=== PATIENT | female | born 1960 | race Caucasian/White ===

== ENCOUNTER → 2016-10-09 | Outpatient (CLI) | payer BC ==
[~2016-10-09] MED LIST: AGM875T PO; ASPI-586 PO; CETI10TA17 PO; LEVO500T80 PO; LEVO5TAB12 PO; LSNP20T PO; LVT.1T PO; METF-380 PO; MONT10TA24 PO; OMEG10005 PO; PHEN37.555 PO
--- NOTE | 2016-10-09 19:21 | Diagnostic Imaging Report ---
Bilateral screening mammogram. The current study was also evaluated with a Computer Aided Detection (CAD) system. INDICATION: Screening. No current complaints stated on the questionnaire. COMPARISON: 10/10/15. FINDINGS: The breasts are composed of scattered fibroglandular densities. There is an intramammary lymph node seen in the upper outer aspect of the right breast. Scattered benign-appearing calcifications are seen. Allowing for technique and positional differences, no suspicious change is seen. IMPRESSION: No significant change. ACR BI-RADS Category 2: Benign findings. Result letter will be mailed to the patient. Note: At least 10% of breast cancer is not imaged by mammography. Dictated by: Dictated on workstation # [id number]
== END ==
LOC: RAD 06:47
PROVIDERS: ATTEND Internal Medicine
DX: Z12.31 Encounter for screening mammogram for malignant neoplasm of breast (principal)

== ENCOUNTER 2016-12-19 14:54 | Emergency (ER) | payer BC ==
[~2016-12-19] VITALS: Ht 162.6 cm; Wt 73.9 kg
[~2016-12-19 14:54] MED LIST changes: -ASPI-586 PO; -LEVO500T80 PO; -LEVO5TAB12 PO; -MONT10TA24 PO; -OMEG10005 PO
--- OUTSIDE RECORDS SUMMARY | 2016-12-19 15:00 | XMS REPORT | Continuity of Care Document ---
Author Author [facility] Organization [facility] Address Unknown Phone Unavailable Allergies Active Description Code Type Severity Reaction Onset Reported/Identified Relationship to Patient Clinical Status Yes cephalexin [id number] Drug Allergy Unknown N/A 09/17/2016 Medications Problems Date Dx Coded Attending Type Code Diagnosis Diagnosed By 02/08/2012 Ot 883.0 OPEN WOUND OF FINGER 02/08/2012 Ot E000.8 OTHER EXTERNAL CAUSE STATUS 02/08/2012 Ot E849.0 ACCIDENT IN HOME 02/08/2012 Ot E920.4 ACCID-OTHER HAND TOOLS 02/08/2012 Ot V06.1 [id number], COMBINED [ 02/16/2012 Ot V58.32 ENCOUNTER FOR REMOVAL OF SUTURES 10/11/2014 Ot V76.12 10/11/2014 Ot 785.6 10/11/2014 Ot 722.4 10/11/2014 Ot 723.4 10/11/2014 Ot V76.12 10/11/2014 FOSTER ALVARENGA EX ASSISTANT/PROGRAM DIRECTOR Ot V76.12 10/30/2014 Ot V76.12 10/30/2014 Ot 785.6 10/30/2014 Ot 722.4 10/30/2014 Ot 723.4 10/30/2014 Ot V76.12 10/30/2014 FOSTER ALVARENGA EX ASSISTANT/PROGRAM DIRECTOR Ot V76.12 10/30/2014 FOSTER ALVARENGA EX ASSISTANT/PROGRAM DIRECTOR Ot V76.12 11/02/2014 FOSTER ALVARENGA EX ASSISTANT/PROGRAM DIRECTOR Ot V76.12 11/15/2014 FOSTER ALVARENGA EX ASSISTANT/PROGRAM DIRECTOR Ot 793.80 05/03/2015 FOSTER ALVARENGA EX ASSISTANT/PROGRAM DIRECTOR Ot 793.80 09/26/2015 FOSTER ALVARENGA EX ASSISTANT/PROGRAM DIRECTOR Ot R05 09/26/2015 FOSTER ALVARENGA EX ASSISTANT/PROGRAM DIRECTOR Ot R50.9 10/24/2015 FOSTER ALVARENGA EX ASSISTANT/PROGRAM DIRECTOR Ot Z12.31 09/17/2016 Ot 722.4 CERVICAL DISC DEGEN 09/17/2016 Ot 723.4 BRACHIAL NEURITIS NOS 09/17/2016 Ot V76.12 OTH SCREEN MAMMO-MALIGN NEOPLASM OF ZHANG 09/17/2016 FOSTER ALVARENGAP Ot V76.12 OTH SCREEN MAMMO-MALIGN NEOPLASM OF ZHANG 09/17/2016 FOSTER ALVARENGAP Ot V76.12 OTH SCREEN MAMMO-MALIGN NEOPLASM OF ZHANG 09/17/2016 FOSTER ALVARENGA EX ASSISTANT/PROGRAM DIRECTOR Ot 793.80 UNSPEC ABNORMAL MAMMOGRAM 09/17/2016 FOSTER ALVARENGA EX ASSISTANT/PROGRAM DIRECTOR Ot 793.80 UNSPEC ABNORMAL MAMMOGRAM 09/17/2016 FOSTER ALVARENGAP Ot R05 COUGH 09/17/2016 FOSTER ALVARENGA EX ASSISTANT/PROGRAM DIRECTOR Ot R50.9 FEVER, UNSPECIFIED 09/17/2016 FOSTER ALVARENGAP Ot Z12.31 ENCNTR SCREEN MAMMOGRAM FOR MALIGNANT NE 09/18/2016 FIFI ALVARENGA DO Ot A08.39 OTHER VIRAL ENTERITIS 09/18/2016 FIFI ALVARENGA DO Ot E86.0 DEHYDRATION 09/19/2016 FIFI ALVARENGA DO Ot A08.39 OTHER VIRAL ENTERITIS 09/19/2016 FIFI ALVARENGA DO Ot E86.0 DEHYDRATION 10/01/2016 FIFI ALVARENGA DO Ot A08.39 OTHER VIRAL ENTERITIS 10/01/2016 FIFI ALVARENGA DO Ot E86.0 DEHYDRATION 10/09/2016 FIFI ALVARENGA DO Ot Z12.31 ENCNTR SCREEN MAMMOGRAM FOR MALIGNANT NE 10/10/2016 FIFI ALVARENGA DO Ot Z12.31 ENCNTR SCREEN MAMMOGRAM FOR MALIGNANT NE 10/24/2016 FIFI ALVARENGA DO Ot Z12.31 ENCNTR SCREEN MAMMOGRAM FOR MALIGNANT NE Procedures Results Encounters ACCT No. Visit Date/Time Discharge Status Pt. Type Provider Facility Loc./Unit Complaint [id number] 04/18/2015 07:42:00 2014 23:59:59 CLS Outpatient FOSTER ALVARENGAP [facility] RAD FOLLOW UP [id number] 10/30/2014 12:10:00 2014 23:59:59 CLS Outpatient FOSTER ALVARENGA EX ASSISTANT/PROGRAM DIRECTOR [facility] RAD ABNORMAL MAMMO [id number] 10/11/2014 16:01:00 2014 23:59:59 CLS Outpatient FOSTER ALVARENGA L EX ASSISTANT/PROGRAM DIRECTOR [facility] RAD SCREENING [id number] 10/10/2013 14:29:00 2013 23:59:59 CLS Outpatient FOSTER ALVARENGA EX ASSISTANT/PROGRAM DIRECTOR [facility] RAD SCREENING [id number] 12/19/2016 14:56:00 ACT Emergency BUDDY OLIVAS, JO Crenshaw [facility] ER DEHYDRATED [id number] 10/09/2016 06:47:00 ACT Outpatient FIFI ALVARENGA DO [facility] RAD ROUTINE [id number] 09/17/2016 12:22:00 ACT Outpatient FIFI ALVARENGA DO [facility] A08.39,E86.0 [id number] 07/25/2016 15:10:00 ACT Outpatient COLTHARP DOVIRIDIANA A [facility] QUICK LT WRIST PAIN [id number] 10/10/2015 07:32:00 ACT Outpatient FOSTER ALVARENGA EX ASSISTANT/PROGRAM DIRECTOR [facility] RAD SCREENING [id number] 09/10/2015 12:25:00 ACT Outpatient FOSTER ALVARENGA EX ASSISTANT/PROGRAM DIRECTOR [facility] RAD COUGH,FEVER [id number] 10/06/2012 11:09:00 Document Registration [id number] 02/16/2012 17:17:00 Document Registration [id number] 02/08/2012 18:46:00 Document Registration [id number] 04/22/2011 08:04:00 Document Registration [id number] 04/15/2011 08:55:00 Document Registration [id number] 06/07/2010 09:36:00 Document Registration [id number] 05/06/2010 12:23:00 Document Registration
[2016-12-19] MEDS ORDERED: LEVO500T80 PO (15:28)
[2016-12-19] MEDS ORDERED: LEVO5TAB12 PO (15:28)
[2016-12-19] MEDS ORDERED: MONT10TA24 PO (15:28)
[2016-12-19] MEDS ORDERED: OMEG10005 PO (15:28)
[2016-12-19] MEDS ORDERED: ASPI-586 PO (15:28)
[2016-12-19 15:45] LABS: BASOPHILS % (AUTO) 0 % (0-10); EOSINOPHILS # (AUTO) 0.2 10^3/uL (0.0-0.3); EOSINOPHILS % (AUTO) 2 % (0-10); LYMPHOCYTES # (AUTO) 2.1 X 10^3 (1.0-4.0); LYMPHOCYTES % (AUTO) 29 % (12-44); MEAN CORPUSCULAR HEMOGLOBIN 29 PG (25-34); MEAN CORPUSCULAR HGB CONC 34 G/DL (32-36); MEAN CORPUSCULAR VOLUME 86 FL (80-99); MEAN PLATELET VOLUME 11.6 FL (7.4-10.4); MONOCYTES # (AUTO) 0.7 X 10^3 (0.0-1.0); MONOCYTES % (AUTO) 9 % (0-12); NEUTROPHILS # (AUTO) 4.3 X 10^3 (1.8-7.8); NEUTROPHILS % (AUTO) 59 % (42-75); PLATELET COUNT 151 10^3/uL (130-400); RED CELL DISTRIBUTION WIDTH 13.6 % (10.0-14.5); WHITE BLOOD COUNT 7.3 10^3/uL (4.3-11.0)
[2016-12-19 15:59] LABS: ALANINE AMINOTRANSFERASE 37 U/L (0-55); ALBUMIN 4.2 G/DL (3.2-4.5); ANION GAP 12 MMOL/L (5-14); ASPARTATE AMINO TRANSFERASE 32 U/L (5-34); BILIRUBIN,TOTAL 0.7 MG/DL (0.1-1.0); BLOOD UREA NITROGEN 10 MG/DL (7-18); BUN/CREATININE RATIO 13; CALCIUM 9.9 MG/DL (8.5-10.1); CARBON DIOXIDE 22 MMOL/L (21-32); CHLORIDE 107 MMOL/L (98-107); CREATININE SERUM 0.78 MG/DL (0.60-1.30); GFR ESTIMATED > 60; GLUCOSE 176 MG/DL (70-105); SODIUM 141 MMOL/L (135-145); TOTAL PROTEIN 6.6 G/DL (6.4-8.2)
--- NOTE | 2016-12-19 16:02 | Diagnostic Imaging Report ---
INDICATION: Paresthesia with cough. EXAMINATION: Portable upright view of the chest is obtained with comparison made to study of 09/10/2015. FINDINGS: Heart size and pulmonary vascularity are within normal limits, and the lungs are clear, bilaterally. IMPRESSION: Unremarkable chest. Dictated by: Dictated on workstation # [id number]
[2016-12-19 16:25] LABS: BILIRUBIN,URINE NEGATIVE (NEGATIVE); KETONES,URINE NEGATIVE (NEGATIVE); LEUKOCYTE ESTERASE ,URINE NEGATIVE (NEGATIVE); NITRITE,URINE NEGATIVE (NEGATIVE); PH,URINE 8 (5-9); PROTEIN,URINE NEGATIVE (NEGATIVE); UROBILINOGEN,URINE NORMAL (NORMAL)
--- NOTE | 2016-12-19 16:57 | ED General ---
General Chief Complaint: General Problems/Pain Stated Complaint: DEHYDRATED Nursing Triage Note: pt reports had pneumonia 3 weeks ago. reports she was feeling better today until 1330 when she became weak, lethargic, and nauseated. pt also reports episodes of diahrrea. Nursing Sepsis Screen: No Definite Risk Source of Information: Patient History of Present Illness Time Seen by Provider: 16:52 Initial Comments The patient is a 56-year-old white female known to me for several years. She reports that she has had upper respiratory symptoms for at least a month. She had been seen twice at the [facility] during that period of time, the first by Jayde and she was given an antibiotic. She also had albuterol by nebulizer and a course of steroids. It is noted that she is diabetic as well. She felt somewhat better only to relapse and most recently saw Dr. Peacock. She was given Levaquin and has completed 9 days of a 10 day course. This morning she thought she was feeling better and more energetic. 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 She felt that the urge to vomit at about noon while at work and felt very shaky as she walked down the hallway to the bathroom. She reports she had a large liquid stool. She continued to feel lightheaded and generally awful. Her daughter was called and ultimately she was brought here. She described a generalized feeling of heat and specifically a burning sensation in the palms of both hands. This is now resolved. Timing/Duration: 4-6 Hours Associated Systoms: Cough Loss of Appetite Nausea/Vomiting Shortness of Air Syncope Allergies and Home Medications Allergies Coded Allergies: cephalexin (Verified Allergy, Unknown, 09/17/16) clarithromycin (Verified Allergy, Unknown, RASH, 12/19/16) phentermine (Verified Adverse Reaction, Unknown, 12/19/16) ankle cramps Home Medications Aspirin 81 Mg Tablet.dr 81 MG PO DAILY (Reported) Levocetirizine Dihydrochloride 5 Mg Tablet 5 MG PO (Reported) Levofloxacin 500 Mg Tablet 500 MG PO DAILY (Reported) Levothyroxine Sodium 100 Mcg Tablet 1 EACH PO DAILY (Reported) Lisinopril 20 Mg Tab 20 MG PO DAILY (Reported) Montelukast Sodium 10 Mg Tablet 10 MG PO DAILY (Reported) [place]-3 Fatty Acids 1,000 Mg Capsule 2,000 MG PO DAILY (Reported) Constitutional: see HPI EENTM: no symptoms reported Respiratory: cough dyspnea on exertion short of breath wheezing Cardiovascular: no symptoms reported Gastrointestinal: nausea vomiting Genitourinary: no symptoms reported Musculoskeletal: muscle weakness other (tremor after albuterol) Skin: no symptoms reported Psychiatric/Neurological: No Symptoms Reported Hematologic/Lymphatic: No Symptoms Reported Immunological/Allergic: no symptoms reported Past Exbfkxc-Akmzom-Lrnunj Hx Patient Social History Alcohol Use: Occasionally Uses Recreational Drug Use: No Smoking Status: Never a Smoker Recent Foreign Travel: No Contact w/Someone Who Travel: No Recent Infectious Disease Expo: No Recent Hopitalizations: No Immunizations Up To Date Date of Influenza Vaccine: Jun 10, 2016 Seasonal Allergies Seasonal Allergies: Yes Surgeries HX Surgeries: Yes (endometriosis, feet) Surgeries: Gallbladder, Hysterectomy, Orthopedic Respiratory Hx Respiratory Disorders: No Cardiovascular Hx Cardiac Disorders: Yes Cardiac Disorders: Hypertension Neurological Hx Neurological Disorders: No Reproductive System Hx Reproductive Disorders: Yes Female Reproductive Disorders: Endometriosis [employer] History: Hysterectomy Genitourinary Hx Genitourinary Disorders: No Gastrointestinal Hx Gastrointestinal Disorders: No Musculoskeletal Hx Musculoskeletal Disorders: Yes (bursitis) Musculoskeletal Disorders: Fibromyalgia Endocrine Hx Endocrine Disorders: Yes Endocrine Disorders: Diabetes, Non-Insulin dep Cancer Hx Cancer: No Psychosocial Hx Psychiatric Problems: No Integumentary HX Skin/Integumentary Disorder: No Blood Transfusions Hx Blood Disorders: No Physical Exam Vital Signs Vital Sign - Last 12Hours 12/19/16 15:15 Temp 98.7 Pulse 75 Resp 18 B/P 171/90 Pulse Ox 95 Capillary Refill : Less Than 3 Seconds General Appearance: Mild Distress Eyes: Bilateral Eye Normal Inspection HEENT: Normal ENT Inspection Neck: Normal Inspection Respiratory: Chest Non Tender Lungs Clear No Accessory Muscle Use No Respiratory Distress Decreased Breath Sounds (distant) Cardiovascular: Regular Rate, Rhythm No Edema No Gallop No JVD No Murmur Normal Peripheral Pulses Gastrointestinal: Abnormal Bowel Sounds (somewhat hypoactive) Back: Normal Inspection Extremity: Normal Capillary Refill Normal Inspection Normal Range of Motion Non Tender No Calf Tenderness No Pedal Edema Neurologic/Psychiatric: Alert Oriented x3 No Motor/Sensory Deficits Normal Mood/Affect Skin: Normal Color Warm/Dry Lymphatic: No Adenopathy Focused Exam Lactic Acid Level Laboratory Tests Test 12/19/16 15:13 Alanine Aminotransferase (ALT/SGPT) 37U/L (0-55) Albumin 4.2G/DL (3.2-4.5) Alkaline Phosphatase 91U/L (40-136) Anion Gap 12MMOL/L (5-14) Aspartate Amino Transf (AST/SGOT) 32U/L (5-34) BUN/Creatinine Ratio 13 Blood Urea Nitrogen 10MG/DL (7-18) Calcium Level 9.9MG/DL (8.5-10.1) Carbon Dioxide Level 22MMOL/L (21-32) Chloride Level 107MMOL/L (98-107) Creatinine 0.78MG/DL (0.60-1.30) Estimat Glomerular Filtration Rate > 60 Glucose Level 176MG/DL (70-105) H Potassium Level 4.0MMOL/L (3.6-5.0) Sodium Level 141MMOL/L (135-145) Total Bilirubin 0.7MG/DL (0.1-1.0) Total Protein 6.6G/DL (6.4-8.2) Progress/Results/Core Measures Results/Orders Lab Results Laboratory Tests Test 12/19/16 15:13 12/19/16 16:19 Range/Units Alanine Aminotransferase (ALT/SGPT) 37 0-55 U/L Albumin 4.2 3.2-4.5 G/DL Alkaline Phosphatase 91 40-136 U/L Anion Gap 12 5-14 MMOL/L Aspartate Amino Transf (AST/SGOT) 32 5-34 U/L BUN/Creatinine Ratio 13 Basophils # (Auto) 0.0 0.0-0.1 10^3/uL Basophils (%) (Auto) 0 0-10 % Blood Urea Nitrogen 10 7-18 MG/DL Calcium Level 9.9 8.5-10.1 MG/DL Carbon Dioxide Level 22 21-32 MMOL/L Chloride Level 107 98-107 MMOL/L Creatinine 0.78 0.60-1.30 MG/DL Eosinophils # (Auto) 0.2 0.0-0.3 10^3/uL Eosinophils (%) (Auto) 2 0-10 % Estimat Glomerular Filtration Rate > 60 Glucose Level 176 H 70-105 MG/DL Hematocrit 40 35-52 % Hemoglobin 13.8 11.5-16.0 G/DL Lymphocytes # (Auto) 2.1 1.0-4.0 X 10^3 Lymphocytes (%) (Auto) 29 12-44 % Mean Corpuscular Hemoglobin 29 25-34 PG Mean Corpuscular Hemoglobin Concent 34 32-36 G/DL Mean Corpuscular Volume 86 80-99 FL Mean Platelet Volume 11.6 H 7.4-10.4 FL Monocytes # (Auto) 0.7 0.0-1.0 X 10^3 Monocytes (%) (Auto) 9 0-12 % Neutrophils # (Auto) 4.3 1.8-7.8 X 10^3 Neutrophils (%) (Auto) 59 42-75 % Platelet Count 151 130-400 10^3/uL Potassium Level 4.0 3.6-5.0 MMOL/L Red Blood Count 4.70 4.35-5.85 10^6/uL Red Cell Distribution Width 13.6 10.0-14.5 % Sodium Level 141 135-145 MMOL/L Total Bilirubin 0.7 0.1-1.0 MG/DL Total Protein 6.6 6.4-8.2 G/DL White Blood Count 7.3 4.3-11.0 10^3/uL Urine Bacteria NEGATIVE /HPF Urine Bilirubin NEGATIVE NEGATIVE Urine Casts NONE /LPF Urine Clarity CLEAR Urine Color YELLOW Urine Crystals NONE /LPF Urine Culture Indicated NO Urine Glucose (UA) NEGATIVE NEGATIVE Urine Ketones NEGATIVE NEGATIVE Urine Leukocyte Esterase NEGATIVE NEGATIVE Urine Mucus NEGATIVE /LPF Urine Nitrite NEGATIVE NEGATIVE Urine Protein NEGATIVE NEGATIVE Urine RBC NONE /HPF Urine RBC (Auto) NEGATIVE NEGATIVE Urine Specific [place] 1.010 L 1.016-1.022 Urine Squamous Epithelial Cells 5-10 /HPF Urine Urobilinogen NORMAL NORMAL MG/DL Urine WBC NONE /HPF Urine pH 8 5-9 My Orders Orders-JO GOODWIN MD Cbc With Automated Diff (12/19/16 15:38) Comprehensive Metabolic Panel (12/19/16 15:38) Ua Culture If Indicated (12/19/16 15:38) Chest 1 View, Ap/Pa Only (12/19/16 15:38) Vital Signs/I&O Vital Sign - Last 12Hours 12/19/16 15:15 Temp 98.7 Pulse 75 Resp 18 B/P 171/90 Pulse Ox 95 Blood Pressure Mean: 117 Departure Impression Impression: Primary Impression: viral syndrome Additional Impression: cough/bronchospasm Disposition: 01 HOME, SELF-CARE Condition: Stable/Unchanged Departure-Patient Inst. Decision time for Depature: 17:00 Referrals: FIFI ALVARENGA DO (PCP/Family) Primary Care Physician Add. Discharge Instructions: All discharge instructions reviewed with patient and/or family. Voiced understanding. Stop Levaquin. Rest for the remainder of the day. Target increase fluid intake and more specifically 7-Up and Gatorade. If no more GI symptoms by morning you may advance diet to include cream of wheat or oatmeal and dry toast and continued to progress as able with out causing diarrhea or vomiting. Consider seeing your provider again early next week. JO GOODWIN MD Dec 19, 2016 16:57
[2016-12-19 17:20] VITALS: BP 151/79
== END 2016-12-19 17:20 | disposition home or self-care (01) ==
LOC: EDUNIT# 14:54 → ER 14:56
DX: B34.9 Viral infection, unspecified (principal); R05 Cough; I10 Essential (primary) hypertension; E11.9 Type 2 diabetes mellitus without complications; Z79.899 Other long term (current) drug therapy; Z79.82 Long term (current) use of aspirin
CPT/HCPCS: 36415; 71010; 80053; 81000; 85025

== ENCOUNTER 2017-08-06 12:58 | Outpatient (CLI) | payer BC ==
[~2017-08-06] VITALS: Ht 154.9 cm; Wt 78.9 kg
[~2017-08-06 12:58] MED LIST changes: +ASPI-586 PO; +LEVO500T80 PO; +LEVO5TAB12 PO; +MONT10TA24 PO; +OMEG10005 PO
[2017-08-06] MEDS ORDERED: DEXAMETHASONE 10 MG/ML (DECADRON) 1 ML VIAL ONE (13:04)
[2017-08-06 13:30] VITALS: BP 144/85
[2017-08-06 13:52] VITALS: BP 139/88
--- NOTE | 2017-08-10 18:13 | OPERATIVE REPORT ---
DATE OF SERVICE: 08/06/2017 DIAGNOSIS: Cervical radiculopathy. PROCEDURE: Fluoroscopic guided interlaminar epidural steroid injection. PROCEDURE IN DETAIL: After obtaining informed consent from the patient, the patient's chart was reviewed. The patient was then brought to the procedure room and placed in the prone position. A timeout was performed. The back was prepped with antiseptic solution and under fluoro guidance, the patient's lumbar spine was identified at the level of C7-T1. The C7-T1 vertebra was identified with fluoro guidance and approximately 2 mL of 1.5% lidocaine solution was used to anesthetize the skin directly down to the pedicle of the C7-T1 and under fluoroscopic guidance, the tract was anesthetized up to the interlaminar space and the ligamentum flavum. This needle was withdrawn. Then, a 20-gauge 3.5 inch Tuohy needle was then directed following the same tract that was anesthetized with the spinal needle. Using loss of resistance, the epidural space was identified and then the syringe was switched for contrast solution which was injected, approximately 1 mL. After secondary confirmation of epidural access, another syringe was placed and 80 mg of Depo-Medrol was injected. The Tuohy needle was then flushed out with approximately 2 mL of the normal saline used from the loss of resistance syringe. Band-Aids were applied to all the procedure sites. The patient tolerated the procedure well and was taken to the recovery room in stable condition. COMPLICATIONS: None. Job ID: [id number] DocumentID: [id number] Dictated Date: 08/10/2017 09:40:35 Bread Baker Date: 08/10/2017 18:12:23 Dictated By: SYED DEVI DO
== END 2017-08-06 13:53 ==
LOC: CARD 12:58
PROVIDERS: ATTEND Pain Medicine Interventional Pain Medicine
DX: M54.12 Radiculopathy, cervical region (principal); I10 Essential (primary) hypertension; E07.9 Disorder of thyroid, unspecified; Z79.82 Long term (current) use of aspirin; Z79.899 Other long term (current) drug therapy
CPT/HCPCS: 62321

== ENCOUNTER → 2017-09-07 | Outpatient (CLI) | payer BC ==
--- NOTE | 2017-09-07 08:40 | Diagnostic Imaging Report ---
PROCEDURE: CT sinuses without contrast TECHNIQUE: Multiple contiguous axial images were obtained through the sinuses without the use of intravenous contrast. Coronal and sagittal reformations were then performed. INDICATION: Chronic sinusitis. FINDINGS: There is opacification of the mid ethmoidal air cells on both sides with good aeration of the rest of the ethmoidal air cells anteriorly and posteriorly. The sphenoidal sinuses appear clear. The maxillary sinuses are clear with patent ostiomeatal complex. The frontal sinuses are patent. The mastoid air cells and middle ear cavities are patent. The orbits and the soft tissues around the face appear grossly unremarkable. No significant nasal septal deviation. No nasal mass or significant mucosal thickening. IMPRESSION: Minimal opacification in the middle ethmoid air cells bilaterally. Dictated by: Dictated on workstation # [id number]
== END ==
LOC: RAD 07:45
PROVIDERS: ATTEND Otolaryngology Otolaryngology/Facial Plastic Surgery
DX: J32.9 Chronic sinusitis, unspecified (principal)
CPT/HCPCS: 70486

== ENCOUNTER 2017-09-30 09:00 | Outpatient (CLI) | payer BC | END 2017-09-30 09:39 | disposition home or self-care (01) | LOC: SLEEP 09:00 | PROVIDERS: ATTEND Nurse Practitioner Family | DX: G47.10 Hypersomnia, unspecified (principal); R06.83 Snoring; G47.61 Periodic limb movement disorder ==

== ENCOUNTER → 2017-10-15 | Outpatient (CLI) | payer BC ==
--- NOTE | 2017-10-15 17:10 | Diagnostic Imaging Report ---
INDICATION: Digital mammogram bilateral screening. This study was compared to the prior exams from 10/09/16 to 10/06/12. At this time, there are no current complaints. The current study was also evaluated with a Computer Aided Detection (CAD) system. FINDINGS: There are scattered fibroglandular densities in both breasts which could obscure a lesion. Overall, there does not appear to have been any significant change when compared to the prior exam. No primary or secondary sign of malignancy is noted. IMPRESSION: There is no radiographic evidence for malignancy. ACR BI-RADS Category 1: Negative. Result letter will be mailed to the patient. Note: At least 10% of breast cancer is not imaged by mammography. Dictated by: Dictated on workstation # [id number]
== END ==
LOC: RAD 10:53
PROVIDERS: ATTEND Internal Medicine
DX: Z12.31 Encounter for screening mammogram for malignant neoplasm of breast (principal)
CPT/HCPCS: 77067

== ENCOUNTER → 2018-11-09 | Outpatient (CLI) | payer BC ==
--- NOTE | 2018-11-09 13:21 | Diagnostic Imaging Report ---
INDICATION: Routine screening. Comparison is made with prior mammograms from 10/15/2017 and 10/09/2016. 2-D and 3-D bilateral screening mammography was performed with computer-aided Detection (CAD) system. FINDINGS: Scattered fibroglandular densities are identified bilaterally. The parenchymal pattern is stable. No mass or malignant-appearing microcalcifications are seen. The axillae are unremarkable. IMPRESSION: No mammographic features suspicious for malignancy are identified. ACR BI-RADS Category 1: Negative. Result letter will be mailed to the patient. Note: At least 10% of breast cancer is not imaged by mammography. Dictated by: Dictated on workstation # [id number]
== END ==
LOC: RAD 07:20
PROVIDERS: ATTEND Internal Medicine
DX: Z12.31 Encounter for screening mammogram for malignant neoplasm of breast (principal)
CPT/HCPCS: 77067

== ENCOUNTER → 2019-11-10 | Outpatient (CLI) | payer BC ==
--- NOTE | 2019-11-10 10:47 | Diagnostic Imaging Report ---
INDICATION: Routine screening. Comparison is made with prior mammogram 02/21/2019 and 10/15/2017. 2-D and 3-D bilateral screening mammography was performed with CAD. Scattered fibroglandular densities are identified bilaterally. A nodular density in the lower slightly outer right breast mid depth is noted and appears more prominent than prior studies. Additional views are recommended. Left breast is unremarkable. There are occasional benign calcifications present. Axillae are unremarkable. IMPRESSION: BI-RADS 0 Right breast nodular density. Additional views are recommended for further evaluation. ACR BI-RADS Category 0: Incomplete. (Needs additional imaging evaluation). Result letter will be mailed to the patient. Note: At least 10% of breast cancer is not imaged by mammography. Dictated by: Dictated on workstation # [id number]
== END ==
LOC: RAD 07:23
PROVIDERS: ATTEND Nurse Practitioner Family
DX: Z12.31 Encounter for screening mammogram for malignant neoplasm of breast (principal); N63.10 Unspecified lump in the right breast, unspecified quadrant; R92.1 Mammographic calcification found on diagnostic imaging of breast
CPT/HCPCS: 77067

== ENCOUNTER → 2019-12-01 | Outpatient (CLI) | payer BC ==
[~2019-12-01] MED LIST changes: -MONT10TA24 PO; +MONT10TA26 PO
--- NOTE | 2019-12-01 16:04 | Diagnostic Imaging Report ---
INDICATION: Right breast density. Patient presents for additional views. Correlation is made with recent screening study from 11/10/2019. Unilateral right 2-D and 3-D diagnostic mammography was performed including spot compression CC and ML views as well as conventional 90 degree lateral view. There is a persistent nodular density in the lower outer right breast approximately 6-7 cm from the nipple. This is fairly well-circumscribed and likely benign. Further evaluation with ultrasound is recommended. No suspicious microcalcifications are seen. IMPRESSION: BI-RADS 0. Circumscribed nodular density lower outer right breast 6 to 7 cm from the nipple. Further evaluation with ultrasound is recommended. ACR BI-RADS Category 0: Incomplete. (Needs additional imaging evaluation). Result letter will be mailed to the patient. Note: At least 10% of breast cancer is not imaged by mammography. Dictated by: Dictated on workstation # [id number]
--- NOTE | 2019-12-02 11:46 | Diagnostic Imaging Report ---
INDICATION: Right breast density. This study is performed for further evaluation. Correlation is made with diagnostic mammogram earlier the same day. FINDINGS: Sonographic interrogation of the lower-outer right breast was performed. There is a small cluster of cysts at the 7 o'clock location, 5 cm from the nipple measuring in aggregate 7 mm x 4 mm. This likely accounts for the mammographic density. No other sonographic abnormality is seen. IMPRESSION: Cluster of cysts at the 7 o'clock location of the right breast, 5 cm from the nipple correlating with the mammographic abnormality. The patient may return to routine annual screening mammography. ACR BI-RADS Category 2: Benign findings. Result letter will be mailed to the patient. Note: At least 10% of breast cancer is not imaged by mammography. Dictated by: Dictated on workstation # [id number]
== END ==
LOC: RAD 08:45
PROVIDERS: ATTEND Nurse Practitioner Family
DX: N60.01 Solitary cyst of right breast (principal)

== ENCOUNTER → 2020-03-30 | Outpatient (CLI) | payer BC ==
--- NOTE | 2020-03-30 07:56 | Diagnostic Imaging Report ---
Indication: Difficulty breathing PA and lateral chest Heart size and pulmonary vascularity are normal. Lungs are clear. There are no effusions or pneumothoraces. IMPRESSION: Negative chest Dictated by: Dictated on workstation # [id number]
== END ==
LOC: RAD 07:00
PROVIDERS: ATTEND Internal Medicine
DX: J45.909 Unspecified asthma, uncomplicated (principal); J01.01 Acute recurrent maxillary sinusitis
CPT/HCPCS: 71047

== ENCOUNTER → 2020-08-24 | Outpatient (CLI) | payer BC ==
[~2020-08-24] MED LIST changes: +ASPI-999 PO; +BUDE10.22 IH; +CHOL20002 PO; +GLIM1TAB4 PO; +HYDR25TA4 PO; +LEVO100T7 PO; +LISI40TA PO; +RT-ALBUINH IH; +TEMA15CA PO; +[UNRECOGNIZED DRUG - CODE] SL; +[UNRECOGNIZED DRUG - OTHER] PO
--- NOTE | 2020-08-24 09:04 | Diagnostic Imaging Report ---
PROCEDURE: CT sinuses without contrast TECHNIQUE: Multiple contiguous axial images were obtained through the sinuses without the use of intravenous contrast. Coronal and sagittal reformations were then performed. Auto Exposure Controls were utilized during the CT exam to meet ALARA standards for radiation dose reduction. INDICATION: Left-sided nasal pressure and chronic sinusitis. FINDINGS: The frontal sinus is clear. There is some mucosal thickening of the ethmoid air cells. Bilateral maxillary sinuses are clear. Sphenoid sinus is clear. Mastoids are well aerated. Ostiomeatal complexes are patent bilaterally. Nasal septum is midline. IMPRESSION: Minimal ethmoid sinus mucosal disease. The study is otherwise unremarkable. Dictated by: Dictated on workstation # [id number]
== END ==
LOC: RAD 08:15
PROVIDERS: ATTEND Nurse Practitioner
DX: J32.2 Chronic ethmoidal sinusitis (principal)
CPT/HCPCS: 70486

== ENCOUNTER 2020-08-28 05:34 | Outpatient (RCR) | payer BC ==
[~2020-08-28] VITALS: Ht 162.6 cm; Wt 86.7 kg
[~2020-08-28 05:34] MED LIST changes: -ASPI-999 PO; -BUDE10.22 IH; -CHOL20002 PO; -GLIM1TAB4 PO; -HYDR25TA4 PO; -LEVO100T7 PO; -LISI40TA PO; -RT-ALBUINH IH; -TEMA15CA PO; -[UNRECOGNIZED DRUG - CODE] SL; -[UNRECOGNIZED DRUG - OTHER] PO
[2020-08-28 09:15] VITALS: BP 114/76
[2020-08-28] MEDS ORDERED: ASPI-999 PO (10:16)
[2020-08-28] MEDS ORDERED: LEVO100T7 PO (10:16)
[2020-08-28] MEDS ORDERED: RT-ALBUINH IH (10:16)
[2020-08-28] MEDS ORDERED: [UNRECOGNIZED DRUG - CODE] SL (10:16)
[2020-08-28] MEDS ORDERED: LISI40TA PO (10:16)
[2020-08-28] MEDS ORDERED: [UNRECOGNIZED DRUG - OTHER] PO (10:16)
[2020-08-28] MEDS ORDERED: BUDE10.22 IH (10:16)
[2020-08-28] MEDS ORDERED: GLIM1TAB4 PO (10:16)
[2020-08-28] MEDS ORDERED: TEMA15CA PO (10:16)
[2020-08-28] MEDS ORDERED: CHOL20002 PO (10:16)
[2020-08-28] MEDS ORDERED: HYDR25TA4 PO (10:16)
== END 2020-08-28 10:34 | disposition home or self-care (01) ==
LOC: PREOP 05:34
PROVIDERS: ATTEND Otolaryngology Otolaryngology/Facial Plastic Surgery
DX: Z01.812 Encounter for preprocedural laboratory examination (principal); J32.9 Chronic sinusitis, unspecified; J34.3 Hypertrophy of nasal turbinates; Z20.828 Contact with and (suspected) exposure to other viral communicable diseases
CPT/HCPCS: 87081; 93005; U0002; 87635

== ENCOUNTER 2020-08-31 08:18 | Day surgery (SDC) | payer BC ==
[~2020-08-31] VITALS: Ht 162.6 cm; Wt 86.7 kg
[2020-08-31] VITALS (11 sets, daily range): BP systolic 129–166; BP diastolic 74–90
[~2020-08-31 08:18] MED LIST changes: +ASPI-999 PO; +BUDE10.22 IH; +CHOL20002 PO; +GLIM1TAB4 PO; +HYDR25TA4 PO; +LEVO100T7 PO; +LISI40TA PO; -MONT10TA26 PO; +MONT10TA97 PO; +RT-ALBUINH IH; +TEMA15CA PO; +[UNRECOGNIZED DRUG - CODE] SL; +[UNRECOGNIZED DRUG - OTHER] PO
--- NOTE | 2020-08-31 08:24 | Progress Note-Pre Operative ---
Pre-Operative Progress Note H&P Reviewed The H&P was reviewed, patient examined and no changes noted. Date Seen by Provider: Aug 31, 2020 Time Seen by Provider: 08:00 Date H&P Reviewed: Aug 31, 2020 Time H&P Reviewed: 08:00 Pre-Operative Diagnosis: Bilat Chronic Sinusitis, Bialt Hyper of Inf Turbs SYED THOMAS MD Aug 31, 2020 08:24
[2020-08-31] MEDS ORDERED: AMPICILLIN/SULBACTAM INJECTION 1.5 GM in NS (IVPB) 100 ML IV ONE (08:30)
[2020-08-31] MEDS: LACTATED RINGERS 1,000 ML IV PRN ×2 (08:41→12:15)
[2020-08-31] MEDS ORDERED: fentaNYL INJECTION 100 MCG/2 ML AMP ONE (09:27)
[2020-08-31] MEDS ORDERED: MIDAZOLAM 2 MG/2 ML (VERSED) VIAL ONE (09:27)
[2020-08-31] MEDS ORDERED: LIDOCAINE/EPI 1%-1:100,000 (XYLOCAINE) 20ML ONE (09:36)
[2020-08-31] MEDS ORDERED: BSS 15 ML ONE (09:36)
[2020-08-31] MEDS ORDERED: COCAINE HCL 4% 2 ML SYR ONE (09:36)
[2020-08-31] MEDS ORDERED: PHENYLEPHRINE 0.5% NASAL SPR (NEO-SYNEPHRINE) REG ONE (09:36)
[2020-08-31] MEDS ORDERED: proPOfol 200 MG/20 ML (DIPRIVAN) VIAL IV ONE (10:11)
[2020-08-31] MEDS ORDERED: LIDOCAINE PF 2% 5 ML (XYLOCAINE) VIAL ONE (10:11)
[2020-08-31] MEDS ORDERED: SEVOFLURANE (ULTANE) 15 ML INHAL SOLN ONE ×5 (10:11→11:37)
[2020-08-31] MEDS ORDERED: ROCURONIUM 10 MG/ML 5 ML SYRINGE IV ONE (10:11)
[2020-08-31] MEDS ORDERED: ONDANSETRON 4 MG/2 ML (SDV) Z0FRAN ONE (10:11)
[2020-08-31] MEDS ORDERED: NEOSTIGMINE 3 MG/3 ML VIAL ONE (10:47)
[2020-08-31] MEDS ORDERED: GLYCOPYRROLATE 0.2 MG/ML (ROBINUL) 2 ML VIAL ONE (10:47)
[2020-08-31] MEDS ORDERED: HYDROmorphone 2 MG/ML VIAL (DILAUDID) ONE (11:16)
[2020-08-31] MEDS ORDERED: D5 1/2 NS W/KCL 20 MEQ/L 1,000 ML IV SCH (11:35)
--- NOTE | 2020-08-31 11:35 | Progress Note-Post Operative ---
Post-Operative Progess Note Surgeon (s)/Buckle Strap Drum Operator (s) Surgeon SYED THOMAS MD Buckle Strap Drum Operator n/a Pre-Operative Diagnosis Bilat Chronic Sinusitis, Bialt Hyper of Inf Turbs Post-Operative Diagnosis same Post-Op Procedure Note Date of Procedure: Aug 31, 2020 Name of Procedure Performed: Bilat ESS, Bilat Partial Reduction of the INf Turbs Description & Findings Description and Findings: n/a Anesthesia Type get Estimated Blood Loss minimal Packing none. Specimen(s) collected/removed bilat sinus disease SYED THOMAS MD Aug 31, 2020 11:35
[2020-08-31] MEDS ORDERED: ONDANSETRON 4 MG/2 ML (SDV) Z0FRAN IVP PRN (11:45)
[2020-08-31] MEDS ORDERED: HYDROmorphone 2 MG/ML VIAL (DILAUDID) IV ONE (11:45)
[2020-08-31] MEDS ORDERED: PROMETHAZINE INJ 25 MG/ML (PHENERGAN) AMP IVP PRN (11:45)
[2020-08-31] MEDS ORDERED: ACETAMINOPHEN 325 MG TABLET PO PRN (11:45)
[2020-08-31] MEDS ORDERED: HYDROcodone/APAP 5 MG/325 MG (LORTAB) TAB PO PRN (11:45)
[2020-08-31] MEDS ORDERED: AMOX-355 PO (12:40)
[2020-08-31] MEDS ORDERED: ACHD5005 PO (12:40)
[2020-08-31] MEDS ORDERED: HYDROcodone/APAP 5 MG/325 MG (LORTAB) TAB ONE (12:58)
--- NOTE | 2020-08-31 13:11 | Anesthesia-General Post-Op ---
General Patient Condition Mental Status/LOC: Same as Preop Cardiovascular: Satisfactory Nausea/Vomiting: Absent Respiratory: Satisfactory Pain: Controlled Complications: Absent Post Op Complications Complications None Follow Up Care/Instructions Patient Instructions None needed. Anesthesia/Patient Condition Patient Condition Patient is doing well, no complaints, stable vital signs, no apparent adverse anesthesia problems. No complications reported per nursing. D/C home per [facility] Criteria: Yes GIACOMO KELLY CRNA Aug 31, 2020 13:11
== END 2020-08-31 14:15 | disposition home or self-care (01) ==
LOC: SDC 08:18
PROVIDERS: ATTEND Otolaryngology Otolaryngology/Facial Plastic Surgery
DX: J34.3 Hypertrophy of nasal turbinates (principal); J32.8 Other chronic sinusitis; R09.81 Nasal congestion; I10 Essential (primary) hypertension; J45.909 Unspecified asthma, uncomplicated; G47.33 Obstructive sleep apnea (adult) (pediatric); E11.9 Type 2 diabetes mellitus without complications; M06.9 Rheumatoid arthritis, unspecified; E03.9 Hypothyroidism, unspecified; Z79.899 Other long term (current) drug therapy
CPT/HCPCS: 82962; 88305; 88311

== ENCOUNTER → 2020-12-07 | Outpatient (CLI) | payer BC, OTHER ==
[~2020-12-07] MED LIST changes: +ACHD5005 PO; +AMOX-355 PO; -LISI40TA PO; +LISI40TA9 PO; +MONT10TA32 PO; -MONT10TA97 PO
--- NOTE | 2020-12-07 11:54 | Diagnostic Imaging Report ---
Indication: Routine screening. Comparison is made with prior mammogram 11/10/2019 and 11/09/2018. 2-D and 3-D bilateral screening mammography was performed with CAD. Scattered fibroglandular densities are identified bilaterally. The nodular densities right breast are stable. There are benign calcifications bilaterally. No spiculated mass or malignant appearing microcalcifications are seen. Axillae are unremarkable. IMPRESSION: BI-RADS Category 2 No mammographic features suspicious for malignancy are identified. ACR BI-RADS Category 2: Benign findings. Result letter will be mailed to the patient. Note: At least 10% of breast cancer is not imaged by mammography. Dictated by: Dictated on workstation # [id number]
== END ==
LOC: RAD 08:15
PROVIDERS: ATTEND Nurse Practitioner Family
DX: Z00.00 Encounter for general adult medical examination without abnormal findings (principal); Z12.31 Encounter for screening mammogram for malignant neoplasm of breast
CPT/HCPCS: 77063; 77067

== ENCOUNTER → 2021-12-31 | Outpatient (CLI) | payer BC, OTHER ==
[~2021-12-31] MED LIST changes: -LEVO500T80 PO; +LEVO500T81 PO; +MONT-40 PO; -MONT10TA32 PO
--- NOTE | 2021-12-31 13:02 | Diagnostic Imaging Report ---
INDICATION: Routine screening. COMPARISON: 12/07/2020 and 11/10/2019. TECHNIQUE: 2D and 3D bilateral screening mammography was performed with CAD. FINDINGS: Scattered fibroglandular densities are identified bilaterally. Benign calcifications are again noted bilaterally. The benign nodule in the upper outer right breast is stable. No spiculated mass or malignant appearing microcalcifications are seen. The axillae are unremarkable. IMPRESSION: No mammographic features suspicious for malignancy are identified. Dictated by: Dictated on workstation # [id number]
== END ==
LOC: RAD 07:30
PROVIDERS: ATTEND Nurse Practitioner Family
DX: Z12.31 Encounter for screening mammogram for malignant neoplasm of breast (principal)
CPT/HCPCS: 77063; 77067

== ENCOUNTER → 2021-12-31 | Outpatient (CLI) | payer BC, OTHER ==
--- NOTE | 2021-12-31 08:34 | Diagnostic Imaging Report ---
Procedure: CT paranasal sinuses without contrast Technique: Multiple contiguous axial images were obtained through the sinuses without the use of intravenous contrast. Coronal and sagittal reformations were then performed. Auto Exposure Controls were utilized during the CT exam to meet ALARA standards for radiation dose reduction. Date: December 31, 2021. Indication: 61-year-old female, sinus drainage. History of prior sinus surgery one year ago. Comparison: CT paranasal sinuses without contrast August 24, 2020. Findings: The frontal sinuses are well aerated bilaterally. The patient is status post functional endoscopic sinus surgery. The bilateral maxillary sinuses, sphenoid sinuses, and ethmoidal air cells are well aerated. The bony nasal septum is near midline. There is no wall thickening of the bony martinez of the paranasal sinuses. The bilateral sphenoethmoidal recesses are patent. The imaged portions of the paranasal sinuses and middle ears are well aerated bilaterally. 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 The orbits are grossly unremarkable in appearance. Impression: 1. No evidence of acute or chronic sinusitis. 2. Status post bilateral functional endoscopic sinus surgery. Dictated by: Dictated on workstation # [id number]
== END ==
LOC: RAD 07:27
PROVIDERS: ATTEND Otolaryngology Otolaryngology/Facial Plastic Surgery
DX: J32.9 Chronic sinusitis, unspecified (principal)
CPT/HCPCS: 70486

== ENCOUNTER 2022-03-28 11:58 | Emergency (ER) | payer BC ==
[~2022-03-28] VITALS: Ht 167 cm; Wt 72.0 kg
[2022-03-28] MEDS ORDERED: NS IV 1000 ML 1,000 ML IV STA (13:34)
--- NOTE | 2022-03-28 13:44 | ED General ---
General Chief Complaint: General Problems/Pain Stated Complaint: WEAKNESS Nursing Triage Note: patient states for the last three weeks she has been weak. states last week she was diagnosed with bronchitis and a sinus infection. patient states today her weakness is worse. Source of Information: Patient Exam Limitations: No Limitations History of Present Illness Date Seen by Provider: Mar 28, 2022 Time Seen by Provider: 13:36 Initial Comments This is a 61-year-old female that presents to the emergency room for evaluation of a cough, generalized malaise and sinus congestion. She states that she has had symptoms for 3 weeks but they really worsened last week. She states that she went to the [facility] and they started her on Levaquin and diagnosed her with bronchitis. They also gave her a shot of steroids. Patient reports that they checked her for COVID-19 and influenza which were both negative. She states that she thought she was doing better but then her symptoms seem to worsen again. She also reports that she was recently out hiking but does not recall ever having a tick on her. Timing/Duration: Other (2-3 weeks) Severity: Moderate Associated Systoms: Cough, Malaise Allergies and Home Medications Allergies Coded Allergies: cephalexin (Verified Allergy, Unknown, 09/17/16) clarithromycin (Verified Allergy, Unknown, RASH, 12/19/16) phentermine (Verified Adverse Reaction, Unknown, 12/19/16) ankle cramps Uncoded Allergies: tarrgon (Allergy, Unknown, lips swelled, 08/28/20) Patient Home Medication List Home Medication List Reviewed: Yes Albuterol Sulfate (Proair Hfa) 1 Puff Puff, 2 PUFF IH Q6H PRN for WHEEZING, (Reported) Entered as Reported by: JANE MONROY on 08/28/20 1016 Amoxicillin/Potassium Clav (Augmentin 500-125 Tablet) 1 Each Tablet, 1 EACH PO BID Prescribed by: KARLY REEDER on 08/31/20 1240 Budesonide/Formoterol Fumarate (Symbicort 80-4.5 Mcg Inhaler) 10.2 Gm Hfa.aer.ad, 2 PUFF IH BID PRN for SHORTNESS OF BREATH, (Reported) Entered as Reported by: JANE MONROY on 08/28/20 1016 Cholecalciferol (Vitamin D3) (Vitamin D3) 50 Mcg Capsule, 50 MCG PO DAILY, (Reported) Entered as Reported by: JANE MONROY on 08/28/20 1016 Cyanocobalamin (Vitamin B-12) (B-12) 3,000 Mcg/1 Ml Drops, 3,000 MCG SL DAILY, (Reported) Entered as Reported by: JANE MONROY on 08/28/20 1016 Doxycycline Hyclate (Doxycycline Hyclate) 100 Mg Tablet, 100 MG PO BID Prescribed by: Rikki Mendoza on 03/28/22 1559 Glimepiride (Glimepiride) 1 Mg Tablet, 1 MG PO DAILY@1800, (Reported) Entered as Reported by: JANE MONROY on 08/28/20 1016 Hydrochlorothiazide (Hydrochlorothiazide) 25 Mg Tablet, 25 MG PO HS, (Reported) Entered as Reported by: JANE MONROY on 08/28/20 1016 Hydrocodone/Acetaminophen (Hydrocodone-Acetamin 5-325 mg) 1 Each Tablet, 1-2 EACH PO Q4H Prescribed by: KARLY REEDER on 08/31/20 1240 Levocetirizine Dihydrochloride (Levocetirizine Dihydrochloride) 5 Mg Tablet, 5 MG PO HS, (Reported) Entered as Reported by: KRYSTA AUGUST on 12/19/16 1528 Levothyroxine Sodium (Levothyroxine Sodium) 100 Mcg Tablet, 100 MCG PO DAILY, (Reported) Entered as Reported by: JANE MONROY on 08/28/20 1016 Lisinopril (Lisinopril) 40 Mg Tablet, 40 MG PO DAILY, (Reported) Entered as Reported by: JANE MONROY on 08/28/20 1016 Montelukast Sodium (Montelukast Sodium) 10 Mg Tablet, 10 MG PO HS, (Reported) Entered as Reported by: KRYSTA AUGUST on 12/19/16 1528 Temazepam (Temazepam) 15 Mg Capsule, 15 MG PO HS PRN for SLEEP, (Reported) Entered as Reported by: JANE MONROY on 08/28/20 1016 [fibrorelief] , 2 CAP PO BID, (Reported) Entered as Reported by: JANE MONROY on 08/28/20 1016 Review of Systems Review of Systems Constitutional: malaise EENTM: nose congestion Respiratory: cough, phlegm Cardiovascular: no symptoms reported : No Musculoskeletal: muscle pain Skin: no symptoms reported Psychiatric/Neurological: No Symptoms Reported Immunological/Allergic: no symptoms reported Past Pdzxppz-Tnckdz-Swztjh Hx Patient Social History Tobacco Use?: No Use of E-Cig and/or Vaping dev: No Substance use?: No Seasonal Allergies Seasonal Allergies: Yes Past Medical History Surgeries: Yes (endometriosis, feet) Gallbladder, Hysterectomy, Orthopedic Respiratory: Yes (allergy induced asthma) Currently Using CPAP: No Currently Using BIPAP: No Cardiac: Yes Hypertension Neurological: No Reproductive Disorders: Yes 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 0.0oz. 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 Norm as Tested Skin: Normal Color, Warm/Dry Lymphatic: No Adenopathy Progress/Results/Core Measures Suspected Sepsis SIRS Temperature: Pulse: 77 Respiratory Rate: 20 Laboratory Tests 03/28/22 14:00: White Blood Count 2.0L Blood Pressure 135 /83 Mean: 100 Laboratory Tests 03/28/22 14:00: Creatinine 0.97, Platelet Count 110L, Total Bilirubin 0.5 Results/Orders Lab Results Laboratory Tests Test 03/28/22 14:00 03/28/22 15:20 Range/Units White Blood Count 2.0 L 4.3-11.0 10^3/uL Red Blood Count 4.55 3.80-5.11 10^6/uL Hemoglobin 13.0 11.5-16.0 g/dL Hematocrit 40 35-52 % Mean Corpuscular Volume 87 80-99 fL Mean Corpuscular Hemoglobin 29 25-34 pg Mean Corpuscular Hemoglobin Concent 33 32-36 g/dL Red Cell Distribution Width 13.8 10.0-14.5 % Platelet Count 110 L 130-400 10^3/uL Mean Platelet Volume 11.2 9.0-12.2 fL Immature Granulocyte % (Auto) 1 % Neutrophils (%) (Auto) 66 42-75 % Lymphocytes (%) (Auto) 26 12-44 % Monocytes (%) (Auto) 7 0-12 % Eosinophils (%) (Auto) 0 0-10 % Basophils (%) (Auto) 0 0-10 % Neutrophils # (Auto) 1.3 L 1.8-7.8 10^3/uL Lymphocytes # (Auto) 0.5 L 1.0-4.0 10^3/uL Monocytes # (Auto) 0.2 0.0-1.0 10^3/uL Eosinophils # (Auto) 0.0 0.0-0.3 10^3/uL Basophils # (Auto) 0.0 0.0-0.1 10^3/uL Immature Granulocyte # (Auto) 0.0 0.0-0.1 10^3/uL Percent Immature Platelet Fraction 5.1 0.0-7.6 % Sodium Level 140 135-145 MMOL/L Potassium Level 3.8 3.6-5.0 MMOL/L Chloride Level 105 98-107 MMOL/L Carbon Dioxide Level 26 21-32 MMOL/L Anion Gap 9 5-14 MMOL/L Blood Urea Nitrogen 20 H 7-18 MG/DL Creatinine 0.97 0.60-1.30 MG/DL Estimat Glomerular Filtration Rate 66 BUN/Creatinine Ratio 21 Glucose Level 210 H 70-105 MG/DL Calcium Level 8.5 8.5-10.1 MG/DL Corrected Calcium 8.6 8.5-10.1 MG/DL Total Bilirubin 0.5 0.1-1.0 MG/DL Aspartate Amino Transf (AST/SGOT) 60 H 5-34 U/L Alanine Aminotransferase (ALT/SGPT) 58 H 0-55 U/L Alkaline Phosphatase 106 40-136 U/L Total Protein 6.9 6.4-8.2 GM/DL Albumin 3.9 3.2-4.5 GM/DL Urine Color YELLOW Urine Clarity CLEAR Urine pH 6.0 5-9 Urine Specific [place] 1.015 L 1.016-1.022 Urine Protein NEGATIVE NEGATIVE Urine Glucose (UA) 3+ H NEGATIVE Urine Ketones NEGATIVE NEGATIVE Urine Nitrite NEGATIVE NEGATIVE Urine Bilirubin NEGATIVE NEGATIVE Urine Urobilinogen 0.2 < = 1.0 MG/DL Urine Leukocyte Esterase NEGATIVE NEGATIVE Urine RBC (Auto) NEGATIVE NEGATIVE Urine RBC NONE /HPF Urine WBC 2-5 /HPF Urine Squamous Epithelial Cells RARE /HPF Urine Crystals NONE /LPF Urine Bacteria NEGATIVE /HPF Urine Casts NONE /LPF Urine Mucus NEGATIVE /LPF Urine Yeast FEW H /HPF Urine Culture Indicated YES My Orders Orders - DENISE MENDOZA PA Tick Panel With Lyme Eia (03/28/22 13:34) Ed Iv/Invasive Line Start (03/28/22 13:34) Cbc With Automated Diff (03/28/22 13:34) Comprehensive Metabolic Panel (03/28/22 13:34) Ua Culture If Indicated (03/28/22 13:34) Chest 1 View, Ap/Pa Only (03/28/22 13:34) Ns Iv 1000 Ml (Sodium Chloride 0.9%) (03/28/22 13:34) Urine Culture (03/28/22 15:20) Vital Signs/I&O 03/28/22 12:14 Temp 36.7 Pulse 77 Resp 20 B/P (MAP) 135/83 (100) Pulse Ox 97 O2 Delivery Room Air Capillary Refill : Less Than 3 Seconds Blood Pressure Mean: 100 Departure Communication (PCP) Patient is afebrile, nontoxic and in no distress. She feels slightly improved after IV hydration here. Her chest x-ray was normal and her lab work shows some glucose urea, leukopenia and slight thrombocytopenia. Her hemoglobin and hematocrit are normal. She does have a recent history of backcountry hiking and there is some concern about possible tickborne illness. I did send a tick panel and we will switch the patient to doxycycline at this time to cover for respiratory illness as well as tickborne illness. We had a lengthy discussion about home care and return precautions and the patient is in agreement of the care plan. Impression Primary Impression: Upper respiratory infection Disposition: HOME, SELF-CARE Condition: Stable Departure-Patient Inst. Decision time for Depature: 15:57 Referrals: FIFI ALVARENGA DO (PCP/Family) Primary Care Physician Patient Instructions: Bacterial Upper Respiratory Infection, Adult Add. Discharge Instructions: Please return to the emergency room immediately if you have any severe changes or worsening of symptoms. All discharge instructions reviewed with patient and/or family. Voiced understanding. Scripts Doxycycline Hyclate (Doxycycline Hyclate) 100 Mg Tablet 100 MG PO BID for 10 Days, #20 TAB Prov: DENISE MENDOZA 03/28/22 DENISE MENDOZA Mar 28, 2022 13:44
--- NOTE | 2022-03-28 14:07 | Diagnostic Imaging Report ---
Indication: Bronchitis. COMPARISON: 12/19/2016. FINDINGS: The heart size is normal. The lungs are clear. No pleural effusion or pneumothorax is identified. The pulmonary vascularity is normal. IMPRESSION: No acute abnormality detected. Dictated by: Dictated on workstation # [id number]
[2022-03-28 14:08] LABS: BASOPHILS % (AUTO) 0 % (0-10); EOSINOPHILS % (AUTO) 0 % (0-10)
[2022-03-28 14:11] LABS: HEMATOCRIT 40 % (35-52); LYMPHOCYTES # (AUTO) 0.5 10^3/uL (1.0-4.0); LYMPHOCYTES % (AUTO) 26 % (12-44); MEAN CORPUSCULAR HEMOGLOBIN 29 pg (25-34); MEAN CORPUSCULAR HGB CONC 33 g/dL (32-36); MEAN CORPUSCULAR VOLUME 87 fL (80-99); MEAN PLATELET VOLUME 11.2 fL (9.0-12.2); MONOCYTES # (AUTO) 0.2 10^3/uL (0.0-1.0); MONOCYTES % (AUTO) 7 % (0-12); NEUTROPHILS # (AUTO) 1.3 10^3/uL (1.8-7.8); NEUTROPHILS % (AUTO) 66 % (42-75); PLATELET COUNT 110 10^3/uL (130-400)
[2022-03-28 14:22] LABS: ALBUMIN 3.9 GM/DL (3.2-4.5)
[2022-03-28 14:23] LABS: POTASSIUM 3.8 MMOL/L (3.6-5.0)
[2022-03-28 14:24] LABS: CALCIUM 8.5 MG/DL (8.5-10.1)
[2022-03-28 14:25] LABS: TOTAL PROTEIN 6.9 GM/DL (6.4-8.2)
[2022-03-28 14:27] LABS: BILIRUBIN,TOTAL 0.5 MG/DL (0.1-1.0)
[2022-03-28 14:29] LABS: CREATININE SERUM 0.97 MG/DL (0.60-1.30)
[2022-03-28 15:27] LABS: BILIRUBIN,URINE NEGATIVE (NEGATIVE); CLARITY,URINE CLEAR; COLOR,URINE YELLOW; GLUCOSE, URINE (UA) 3+ (NEGATIVE); KETONES,URINE NEGATIVE (NEGATIVE); LEUKOCYTE ESTERASE ,URINE NEGATIVE (NEGATIVE); NITRITE,URINE NEGATIVE (NEGATIVE); PROTEIN,URINE NEGATIVE (NEGATIVE)
[2022-03-28 15:44] LABS: BACTERIA,URINE NEGATIVE /HPF; SQUAMOUS EPITHELIAL CELL,UR RARE /HPF
[2022-03-28 15:45] LABS: YEAST,URINE FEW /HPF
[2022-03-28] MEDS ORDERED: DOXY100T2 PO ×2 (15:59→16:13)
[2022-03-28 17:30] VITALS: BP 132/72
== END 2022-03-28 18:55 | disposition home or self-care (01) ==
LOC: EDUNIT# 11:58 → ER 12:00
DX: J06.9 Acute upper respiratory infection, unspecified (principal)
CPT/HCPCS: 36415; 71045; 80053; 81000; 85025; 86618; 86666; 86668; 86757; 87088; 87106

== ENCOUNTER → 2023-01-07 | Outpatient (CLI) | payer BC ==
[~2023-01-07] MED LIST changes: +ALBU8.5H6 IH; +DOXY100T2 PO; +LEVO-55 PO; -LEVO500T81 PO; -RT-ALBUINH IH
--- NOTE | 2023-01-07 10:45 | Diagnostic Imaging Report ---
INDICATION: Routine screening. Comparison is made with prior mammogram from 12/31/2021 and 12/07/2020. CAD is utilized. The current study was also evaluated with a Computer Aided Detection (CAD) system. Scattered fibroglandular densities are identified bilaterally. Benign nodule in the outer right breast posterior depth is stable. There are scattered benign calcifications bilaterally. No spiculated mass or malignant-appearing microcalcifications are identified. Axillae are unremarkable. IMPRESSION: BI-RADS Category 2 No mammographic features suspicious for malignancy are identified. ACR BI-RADS Category 2: Benign findings. Result letter will be mailed to the patient. Note: At least 10% of breast cancer is not imaged by mammography. Dictated by: Dictated on workstation # [id number]
== END ==
LOC: RAD 07:23
PROVIDERS: ATTEND Internal Medicine
DX: Z12.31 Encounter for screening mammogram for malignant neoplasm of breast (principal)
CPT/HCPCS: 77063; 77067

== ENCOUNTER 2023-01-30 14:57 | Outpatient (RCR) | payer BC ==
[2023-02-11] MEDS ORDERED: PANT40TA2 PO (11:35)
== END 2023-02-01 | disposition home or self-care (01) ==
PROVIDERS: ATTEND Nurse Practitioner Family
DX: M54.51 Vertebrogenic low back pain (principal); R26.89 Other abnormalities of gait and mobility; I10 Essential (primary) hypertension

== ENCOUNTER 2023-02-04 06:04 | Outpatient (CLI) | payer BC ==
[~2023-02-04] VITALS: Ht 162.6 cm; Wt 83.3 kg
[2023-02-04] MEDS ORDERED: SODI51CR8 DT (16:54)
[2023-02-04] MEDS ORDERED: [UNRECOGNIZED DRUG - CODE] TP (16:54)
[2023-02-04] MEDS ORDERED: LEVO5TAB12 PO (16:54)
[2023-02-04] MEDS ORDERED: TIRZ2.5P SQ (16:54)
[2023-02-04] MEDS ORDERED: IPRA3AMP31 IH (16:54)
[2023-02-04] MEDS ORDERED: NYST15CR35 TP (16:54)
[2023-02-04] MEDS ORDERED: MAGN400T29 PO (16:54)
[2023-02-04] MEDS ORDERED: MECL-149 PO (16:54)
[2023-02-04] MEDS ORDERED: FLUT9.9S NS (16:54)
[2023-02-04] MEDS ORDERED: ASPI-1238 PO (16:54)
[2023-02-04] MEDS ORDERED: INSU100I32 SQ (16:54)
[2023-02-04] MEDS ORDERED: EMPA25TA PO (16:54)
[2023-02-04] MEDS ORDERED: BENZ-36 PO (16:54)
[2023-02-11] MEDS ORDERED: PANT40TA2 PO (11:35)
== END 2023-02-04 16:55 | disposition home or self-care (01) ==
LOC: PREOP 06:04
PROVIDERS: ATTEND Surgery
DX: Z01.818 Encounter for other preprocedural examination (principal)

== ENCOUNTER 2023-02-11 09:57 | Day surgery (SDC) | payer BC ==
[~2023-02-11] VITALS: Ht 162 cm; Wt 83.3 kg
[~2023-02-11 09:57] MED LIST changes: +ASPI-1238 PO; +BENZ-36 PO; +EMPA25TA PO; +FLUT9.9S NS; +INSU100I32 SQ; +IPRA3AMP31 IH; +MAGN400T29 PO; +MECL-149 PO; +NYST15CR35 TP; +SODI51CR8 DT; +TIRZ2.5P SQ; +[UNRECOGNIZED DRUG - CODE] TP
[2023-02-11] MEDS ORDERED: LACTATED RINGERS 1,000 ML IV STA (10:17)
[2023-02-11 10:25] VITALS: BP 133/76
[2023-02-11] MEDS ORDERED: PROPOFOL INJECTION 50 ML IV ONE ×2 (10:29→11:39)
[2023-02-11] MEDS ORDERED: LIDOCAINE JELLY 2% 6 ML SYRINGE MM PRN (10:30)
--- NOTE | 2023-02-11 11:34 | Progress Note-Pre Operative ---
Pre-Operative Progress Note Date of Available H&P: February 11, 2023 Date H&P Reviewed: February 11, 2023 Time H&P Reviewed: 11:00 History & Physical: No changes noted Pre-Operative Diagnosis: ruq pain, nausea/vomiting, hx of polyp YARED SCHAEFER MD February 11, 2023 11:34
[2023-02-11] MEDS ORDERED: PANT40TA2 PO (11:35)
--- NOTE | 2023-02-11 11:36 | Discharge Inst-Surgical ---
D/C Lap Instructions-KIDO New, Converted, or Re-Newed RX: RX on Chart Follow Up Activity as tolerated High Fiber Diet 25g or more per day Avoid Alcohol, Caffeine, Spicy [place] and Acid foods. Drink 64 fluid oz or more of fluids per day. Symptoms to Report: Fever over 101 degree F, Nausea/Vomiting If any problems/questions: Contact your physician or go to Emergency Room YARED SCHAEFER MD February 11, 2023 11:36
[2023-02-11] MEDS ORDERED: MIDAZOLAM 2 MG/2 ML (VERSED) VIAL ONE (11:39)
[2023-02-11] MEDS ORDERED: LIDOCAINE JELLY 2% 6 ML SYRINGE ONE (11:40)
[2023-02-11] MEDS ORDERED: HURRICAINE EXT TUBE (BENZOCAINE) XX PRN ×2 (11:45→12:00)
[2023-02-11] MEDS ORDERED: ONDANSETRON 4 MG (ZOFRAN) ORAL DISSOLVE TAB PO PRN (11:45)
[2023-02-11] MEDS ORDERED: ONDANSETRON 4 MG/2 ML (SDV) Z0FRAN IVP PRN (11:45)
[2023-02-11] MEDS ORDERED: HURRICAINE EXT TUBE (BENZOCAINE) ONE (11:55)
[2023-02-11] MEDS ORDERED: ATROPINE INJ 0.4 MG/ML SDV ONE (12:26)
[2023-02-11 12:40] VITALS: BP 118/61
[2023-02-11 12:45] VITALS: BP 104/62
--- NOTE | 2023-02-11 12:54 | Progress Note-Post Operative ---
Post-Operative Progess Note Surgeon (s)/Community Facilitator (s) Surgeon YARED SCHAEFER MD Community Facilitator: none Pre-Operative Diagnosis ruq pain, nausea/vomiting, hx of polyp Post-Operative Diagnosis reflux esophagitis(grade B), small HH(1.5cm), mod-severe gastritis. chronic stage 2-3 ext and int hemorroids, colitis splenic flex and distal transverse. Procedure & Operative Findings Date of Procedure 02/11/23 Procedure Performed/Findings EGD with bx. colonoscopy with bx. Anesthesia Type mac Estimated Blood Loss Estimated blood loss (mL): minimal Specimens/Packing Specimens Removed ge jxn, antrum, splenic flexure. YARED SCHAEFER MD February 11, 2023 12:54
[2023-02-11] MEDS ORDERED: OMEP40CA6 PO (13:05)
[2023-02-11 13:23] VITALS: BP 131/72
--- NOTE | 2023-02-11 14:37 | Anesthesia-General Post-Op ---
MAC Patient Condition Mental Status/LOC: Same as Preop Cardiovascular: Satisfactory Nausea/Vomiting: Absent Respiratory: Satisfactory Pain: Controlled Complications: Absent Post Op Complications Complications None Follow Up Care/Instructions Patient Instructions None needed. Anesthesiology Discharge Order Discharge Order Patient is doing well, no complaints, stable vital signs, no apparent adverse anesthesia problems. No complications reported per nursing. REGINA AYALA CRNA February 11, 2023 14:37
--- NOTE | 2023-02-11 21:18 | OPERATIVE REPORT ---
DATE OF SERVICE: 02/11/2023 ATTENDING PRIMARY CARE PHYSICIAN: Marlin Medina DNP PREOPERATIVE DIAGNOSES: Right upper abdominal quadrant pain, nausea and vomiting, screening colonoscopy. POSTOPERATIVE DIAGNOSES: Reflux esophagitis [place] grade B, small hiatal hernia 1.5 cm in size, moderate to severe gastritis at the stomach antrum, chronic between stage II and III external and internal hemorrhoids, mild colitis of the splenic flexure and the distal transverse colon. PROCEDURE: EGD with biopsy, colonoscopy with biopsy. SURGEON: Reji Brooks MD ANESTHESIA: Monitored anesthesia care. ESTIMATED BLOOD LOSS: Minimal. FINDINGS: Reflux esophagitis [place] grade B, small hiatal hernia 1.5 cm in size, moderate to severe gastritis at the stomach antrum, chronic between stage II and III external and internal hemorrhoids, mild colitis of the splenic flexure and the distal transverse colon. DISPOSITION: The patient tolerated the procedure well. INDICATIONS: The patient is a 62-year-old female referred over to us in need of a screening colonoscopy. She states that she has had some in recent months pain in the right upper abdominal quadrant on an intermittent basis. She states that she has also had some issues with epigastric pain and also associated episodes of nausea. She does not report any red blood per rectum, nor any dark tarry stools. 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 DESCRIPTION OF PROCEDURE: The patient was brought to the endoscopy suite and laid in the left lateral decubitus position. After adequate IV pain and sedative medications and monitored anesthesia care, the mouthpiece was applied. The endoscope was then placed in the mouth, visualizing the pharynx and hypopharyngeal region. Vocal cords, epiglottis and vallecula identified and appeared to be normal. The endoscope was then gently intubated into the esophageal opening and esophagus insufflated. The endoscope was then advanced through the first, second and third portions of esophagus. At the level of the GE junction, reflux esophagitis [place] grade B identified. No ulcers or strictures identified in this region. A biopsy was taken with forceps with visualization of good hemostasis. The endoscope was then advanced into the stomach and endoscope retroflexed, visualizing a small hiatal hernia approximately 1.5 cm in size. There was a moderate to severe gastritis localized more at the stomach antrum with some superficial erosions; however, no ulcerations. Biopsy was taken of the antrum to rule out H. pylori with visualization of good hemostasis. The endoscope was then advanced through the pylorus and first and second portion of the duodenum, which appeared normal. The endoscope was then slowly withdrawn while taking a second look and suctioning of residual air with no additional findings. A digital rectal examination revealed chronic between stage II and III external and internal hemorrhoids. Normal sphincter tone was felt and there were no palpable masses. The endoscope was then intubated into the anus, rectum gently insufflated. The endoscope was then advanced through the valves of [place] of the rectum with no polyps or any neoplasms identified. Through the sigmoid colon, no diverticulosis identified. The endoscope was then advanced through the remainder of the descending colon and at the splenic flexure as well as the distal transverse colon, a [id number] colitis identified. Multiple biopsies were taken with forceps with visualization of good hemostasis. The endoscope was then advanced through the remainder of the transverse colon and ascending colon to the cecum, which were normal. The endoscope was then slowly withdrawn while taking a second look and suctioning of residual air with no additional findings. The patient tolerated the procedure well. We feel that a part of her symptomatology is due to the gastritis and we will recommend the necessary lifestyle and dietary accommodation including avoidance of caffeinated beverages, spicy, greasy and acidic foods as well as small and more frequent meals and avoidance of eating at night. We will also start her on omeprazole 40 mg daily. We are unsure of the etiology of the colitis. This may indicate some low level of inflammatory bowel disease; however, may also be due to an ischemic colitis and for now, we will have her optimize her medical status with proper hydration and optimization of the array of her past medical history as well. If she continues to have the abdominal pain, this may be due to the colitis and again we will await the biopsies to see if this may be more consistent with an inflammatory bowel disease versus an ischemic colitis and again treat her conservatively and if this does not help with her symptomatology, we will then refer her to Gastroenterology. Job ID: [id number] DocumentID: [id number] Dictated Date: 02/11/2023 12:47:47 Heel Scorer Date: 02/11/2023 21:16:00 Dictated By: MD NHI BAILEY
== END 2023-02-11 13:48 | disposition home or self-care (01) ==
LOC: ENDO 09:57
PROVIDERS: ATTEND Surgery
DX: Z12.11 Encounter for screening for malignant neoplasm of colon (principal); K29.60 Other gastritis without bleeding; K21.00 Gastro-esophageal reflux disease with esophagitis, without bleeding; K52.9 Noninfective gastroenteritis and colitis, unspecified; K44.9 Diaphragmatic hernia without obstruction or gangrene; K64.2 Third degree hemorrhoids; K64.4 Residual hemorrhoidal skin tags; K25.9 Gastric ulcer, unspecified as acute or chronic, without hemorrhage or perforation; E66.9 Obesity, unspecified; Z68.31 Body mass index [BMI] 31.0-31.9, adult; Z86.010 Personal history of colon polyps
CPT/HCPCS: 88305

== ENCOUNTER → 2023-03-04 | Outpatient (RCR) | payer BC ==
[~2023-03-04] MED LIST changes: +OMEP40CA6 PO; +PANT40TA2 PO
== END | disposition home or self-care (01) ==
PROVIDERS: ATTEND Nurse Practitioner Family
DX: M54.51 Vertebrogenic low back pain (principal); R26.89 Other abnormalities of gait and mobility

== ENCOUNTER 2023-03-06 15:47 | Outpatient (RCR) | payer BC | END 2023-03-06 16:29 | disposition home or self-care (01) | PROVIDERS: ATTEND Nurse Practitioner Family | DX: M54.51 Vertebrogenic low back pain (principal); R26.89 Other abnormalities of gait and mobility ==

== ENCOUNTER → 2023-07-20 | Outpatient (CLI) | payer BC ==
[~2023-07-20] MED LIST changes: -MECL-149 PO; +MECL-291 PO
--- NOTE | 2023-07-20 08:42 | Diagnostic Imaging Report ---
PROCEDURE: CT sinuses without contrast TECHNIQUE: Multiple contiguous axial images were obtained through the sinuses without the use of intravenous contrast. Coronal and sagittal reformations were then performed. Auto Exposure Controls were utilized during the CT exam to meet ALARA standards for radiation dose reduction. INDICATION: Chronic sinusitis. COMPARISON: 12/31/2021. FINDINGS: There are small air-fluid levels in the maxillary sinuses bilaterally. There has been maxillary antrostomy bilaterally. The frontal, ethmoid, and sphenoid sinuses are clear. The mastoid air cells are clear. The globes and intraorbital structures are unremarkable. The nasopharyngeal soft tissues are symmetrical without mass effect. The parotid glands are normal. IMPRESSION: Small air-fluid levels in the maxillary sinuses bilaterally, suspect for sinusitis. Stable post surgical changes of bilateral functional endoscopic sinus surgery. Dictated by: Dictated on workstation # [id number]
== END ==
LOC: RAD 07:45
PROVIDERS: ATTEND Otolaryngology Otolaryngology/Facial Plastic Surgery
DX: J32.9 Chronic sinusitis, unspecified (principal); Z98.890 Other specified postprocedural states
CPT/HCPCS: 70486